=== PATIENT | male | born 1935 ===

== ENCOUNTER 2018-04-08 10:42 | Outpatient (CLI) | payer OTHER | END 2018-04-08 11:06 | disposition home or self-care (01) | LOC: RAD 10:42 | DX: M54.5 Low back pain (principal) ==

== ENCOUNTER 2018-12-06 18:25 | Outpatient (CLI) | payer OTHER | END 2018-12-06 18:30 | disposition home or self-care (01) | LOC: RAD 18:25 | DX: M81.0 Age-related osteoporosis without current pathological fracture (principal) ==

== ENCOUNTER 2020-02-23 22:13 | Emergency (ER) | payer OTHER ==
[~2020-02-23] VITALS: Ht 180.3 cm; Wt 73.5 kg
[2020-02-23] MEDS ORDERED: PRUNELAX (22:45)
[2020-02-23] MEDS ORDERED: FORTAMET500 MG (22:46)
[2020-02-23] MEDS ORDERED: HYZAAR 100-251 EACH (22:46)
[2020-02-23] MEDS ORDERED: ADULT ASPIRIN81 MG (22:47)
[2020-02-23] MEDS ORDERED: LEVOXYL112 MCG (22:47)
[2020-02-23] MEDS ORDERED: CARBIDOPA/LEVODOPA (22:49)
[2020-02-23] MEDS ORDERED: PREGABALIN50 MG (22:49)
[2020-02-23] MEDS ORDERED: TOLTERODINE 4 MG (22:51)
[2020-02-23] MEDS ORDERED: ATORVASTATIN CA20 MG (22:53)
[2020-02-23] MEDS ORDERED: DULOXETINE 60 MG (22:54)
[2020-02-23] MEDS ORDERED: MAXIMUM D3325 MCG (22:55)
[2020-02-23] MEDS ORDERED: [UNRECOGNIZED DRUG - OTHER] (22:57)
== END 2020-02-24 04:19 | disposition home or self-care (01) ==
LOC: ER 22:13
DX: R33.8 Other retention of urine (principal); K59.09 Other constipation; Z03.818 Encounter for observation for suspected exposure to other biological agents ruled out

== ENCOUNTER 2022-12-03 14:06 | Outpatient (CLI) | payer OTHER ==
[~2022-12-03 14:06] MED LIST: ADULT ASPIRIN81 MG; ATORVASTATIN CA20 MG; CARBIDOPA/LEVODOPA; DULOXETINE 60 MG; FORTAMET500 MG; HYZAAR 100-251 EACH; LEVOXYL112 MCG; MAXIMUM D3325 MCG; PREGABALIN50 MG; PRUNELAX; TOLTERODINE 4 MG; [UNRECOGNIZED DRUG - OTHER]
== END 2022-12-03 14:15 | disposition home or self-care (01) ==
LOC: RAD 14:06
PROVIDERS: ATTEND General Practice
DX: R07.1 Chest pain on breathing (principal); R10.11 Right upper quadrant pain

== ENCOUNTER 2024-09-06 21:36 | Inpatient (IN) | payer OTHER ==
[~2024-09-06] VITALS: Ht 172.7 cm; Wt 68.0 kg
--- NOTE | 2024-09-06 21:52 | NUR ---
SE RECIBE PACIENTE EN AMBULANCIA ALERTA Y ORIENTADO EN PERSONA EN COMPANIA DE FAMILIAR QUIEN REFIERE DESDE HACE LUIS SEMANA PRESENTA DIFICULTAD RESPIRATORIA Y [facility] GENERAL SIN MEJORA ALGUNA. SE OBSERVA CANALIZACION EN MANO IZQUIERDA CON ANGIO #22 PATENTE,AMRIK DE EDEMA O ERITEMA; RECIBIENDO IV FLUIDS. SE REALIZA EKG Y SE MONITOREAN VS.
[2024-09-06] MEDS ORDERED: RYTARY ER 61.21 EACH PO (21:56)
[2024-09-06] MEDS ORDERED: LYRICA50 MG PO (21:57)
[2024-09-06] MEDS ORDERED: XIGDUO XR 10 M1 EAC1 PO (21:57)
[2024-09-06] MEDS ORDERED: HUMALOG100 UNIT/2 SQ (21:57)
[2024-09-06] MEDS ORDERED: VAZALORE81 MG PO (21:57)
[2024-09-06] MEDS ORDERED: ATORVASTATIN CA20 MG PO (21:58)
[2024-09-06] MEDS ORDERED: SERTRALINE20 MG/1 ML (21:58)
[2024-09-06] MEDS ORDERED: COZAAR100 MG PO (21:58)
[2024-09-06] MEDS ORDERED: GLYCOPYRROLATE2 MG PO (21:58)
[2024-09-06] MEDS ORDERED: FOLIC ACID0.8 M1 PO (21:59)
[2024-09-06] MEDS ORDERED: [UNRECOGNIZED DRUG - OTHER] (21:59)
[2024-09-06] MEDS ORDERED: CARVEDILOL ER40 MG (21:59)
[2024-09-06] MEDS ORDERED: PEPCID AC20 MG (21:59)
[2024-09-06] MEDS ORDERED: PIPERACILLIN/TAZOBACTAM SODIUM 3.375 GM VIAL IV ONE ×2 (22:00→22:14)
[2024-09-06] MEDS ORDERED: LEVALBUTEROL HCL 0.63 MG/3 ML SOLUTION IH ONE (22:00)
[2024-09-06] MEDS ORDERED: FAMOtidine 10 MG/ML (4ML VIAL) IV ONE (22:00)
[2024-09-06] MEDS ORDERED: METHYLPREDNISOLONE SOD SUCC 40 MG VIAL IV ONE (22:00)
[2024-09-06] MEDS ORDERED: 0.9 % SODIUM CHLORIDE 1,000 ML IV ONE (22:00)
--- NOTE | 2024-09-06 22:00 | NUR ---
MS MCGINNIS ORIENTA PTE SOBRE Y FAMILIAR SOBRE TX MEDICO EL CUAL REFIERE ENTENDER.SE LE CONECTA A MONITOR CARDIACO Y OXIMETRIA,EN CAMA CON BARANDAS ELEVADAS.SE EXTRAEN MUESTRAS BAJO MEDIDAS ASEPTICAS,SE INSERTA ANGEL Y SE REALIZA EKG.PTE CANALIZADO EN MANO LT POR PARAMEDICOS #22.SE NOTIFICAN ABG A BALDO.
[2024-09-06] MEDS ORDERED: FAMOTIDINE/PF 20 MG/2 ML VIAL ONE (22:14)
[2024-09-06] MEDS ORDERED: METHYLPREDNISOLONE SOD SUCC 40 MG VIAL ONE (22:14)
[2024-09-06 22:52] LABS: ABG PH 7.418 (7.35-7.45); BASE EXCESS 3.3 mmol/l; BICARBONATE 28.4 mmol/l (23-25); Tco2 29.8 mmol/l; allen test NO SATISFACTORY; o2 21 %; puncture site RADIAL LEFT
[2024-09-06 22:53] LABS: ABG PO2 53.6 mmHg (80-100)
[2024-09-06 22:55] LABS: SaO2 88.3 %
--- NOTE | 2024-09-06 23:17 | NUR ---
SE RECIBE PACIENTE MASCULINO ALERTA Y ORIENTADO EN PERSONA EN CAMA CON BARANDAS ELEVADAS POR SEGURIDAD. CONECTADO A MONITOR CARDIACO PRESENTANDO PULSO EN 62/MIN Y SATURACION DE OXIGENO EN 94% ASISTIDO POR UN VENTURY MASK AL 50%. RECIBIENDO IV'S 0.9NSS BAJANDO A 40ML/HR POR VENOPUNCION EN BRAZO DERECHO AREA ARMIK DE EDEMA Y ERITEMA. SONDA URINARIA DRENANDO A GRAVEDAD 300ML DE ORINA COLOR AMARILLO INTENSO. SE DAIN A PACIENTE EN CAMA CON BARANDAS ELEVADAS POR SEGURIDAD Y SE MANTIENE EN OBSERVACION POR CAMBIOS.
[2024-09-06 23:21] LABS: HEMOGLOBIN 11.4 g/dL (13-16.00); MEAN CELL VOLUME 92.3 fL (80.0-100.00); MEAN CORPUSCULAR HGB CONC 33.6 g/dl (32.0-36.0); PLATELET COUNT 229 K/uL (150-450); RED BLOOD COUNT 3.68 M/uL (4.00-6.00)
[2024-09-06 23:41] LABS: ERYTHROCYTE SEDIMENTATION RATE 34 mm/hr
[2024-09-06 23:53] LABS: ALBUMIN 2.6 gm/dL (3.4-5.0); ALKALINE PHOSPHATASE 86 U/L (50-136); ANION GAP 10 (10.0-20.0); AST/SGOT 18 U/L (15-37); BILIRUBIN TOTAL 0.86 mg/dL (0.3-1.2); BLOOD UREA NITROGEN 32 mg/dL (7-18); BUN CREA RATIO 31 (7.0-25.0); CALCIUM 8.9 mg/dL (8.5-10.1); CARBON DIOXIDE 29 mEq/L (21-32); CHLORIDE 103 mmol/L (98-107); CREATININE SERUM 1.02 mg/dL (0.70-1.30); GFR 69.09; GLUCOSE FASTING 80 mg/dL (65-100); LDH 148 U/L (87-241); OSMOLALITY SERUM 282 MOSM/KG (275-295); POTASSIUM 4.23 mEq/L (3.5-5.1); SODIUM 138 mmol/L (136-145); TOTAL PROTEIN 5.6 gm/dL (6.4-8.2)
[2024-09-06 23:54] LABS: ALT/SGPT < 6 U/L (12-78)
[2024-09-06 23:57] LABS: INR 1.05; PARTIAL THROMBOPLASTIN TIME 34.4 SECONDS (22.0-34.0); PROTHROMBIN TIME 11.4 SECONDS (9.0-11.5)
[2024-09-07] VITALS (7 sets, daily range): BP systolic 96–126; BP diastolic 50–71; O2SAT 86–99
[2024-09-07 00:07] LABS: PH,URINE 6.5 (5.0-8.0); URINE APPEARANCE Turbid; URINE BILIRRUBIN Negative (NEGATIVE); URINE BLOOD Small; URINE COLOR Dark Yellow; URINE GLUCOSE Negative (NEGATIVE); URINE KETONE Trace (NEGATIVE); URINE LEUKOCYTE Large; URINE NITRATE Negative; URINE PROTEIN 30 (NEGATIVE)
[2024-09-07 00:11] LABS: URINE EPITHELIAL CELLS 65.5 uL (0.0-38.8); URINE RBC 85.8 uL (0.0-20.8); URINE WBC 483.2 uL (0.0-23.2)
[2024-09-07 00:40] LABS: URINE BACTERIA > 9821.5 uL (0.0-1933); URINE CAST > 21.83 uL (0.0-1.40)
[2024-09-07 00:41] LABS: URINE CRYSTALS FEW /HPF
[2024-09-07] MEDS ORDERED: LEVALBUTEROL HCL 1.25 MG/3 ML SOLUTION IH SCH (01:00)
[2024-09-07] MEDS ORDERED: LEVALBUTEROL HCL 1.25 MG/3 ML SOLUTION IH ONE (01:55)
--- NOTE | 2024-09-07 04:07 | NUR ---
RE-EVALUA PACIENTE. SE COORDINAN NINA X. SE MANTIENE EN OBSERVACION POR CAMBIOS EN CONDICION MEDICA.
[2024-09-07] MEDS ORDERED: PIPERACILLIN/TAZOBACTAM SODIUM 3.375 GM VIAL IV ONE ×2 (05:24→10:23)
[2024-09-07] MEDS ORDERED: PIPERACILLIN/TAZOBACTAM SODIUM 3.375 GM in 0.9 % SODIUM CHLORIDE 100 ML IV SCH ×2 (06:00→12:00)
--- NOTE | 2024-09-07 07:22 | NUR ---
SE RECIBE MASCULINO EN CAMAM CON BARANDAS ELEVADAS POR BLANCO SEGURIDAD Y SUAREZ DE ID. CONECTADO A MONITOR CARDIACO Y OXIMETRIA DE PULSO. VENOPUNCION X2 PATENTE AMRIK DE EDEMA Y ERITEMA EN H/L Y BAJANDO IV FLUIDS POR REGULADOR. V.M. @50% EN POSICION, TOLERANDO AL MOMENTO. NO SE OBSERVA DISTRESS RESPIRATORIO. ANGEL PATENTE BAJANDO A GRAVEDAD CON ORINA AMARILLO OSCURO Y CON SEDIMENTO. EXTREMIDADES SUPERIORES E INFERIORES AMRIK DE EDEMA. PTE PENDIENTE A CONSULTA CON MEDICINA INTERNA.
[2024-09-07 09:42] LABS: ABG PH 7.348 (7.35-7.45); ABG PO2 61.9 mmHg (80-100); BASE EXCESS -2.1 mmol/l; BICARBONATE 23.7 mmol/l (23-25); SaO2 89.8 %; allen test SATISFACTORY; o2 50 %; puncture site RADIAL RIGHT
[2024-09-07] MEDS ORDERED: ACETAMINOPHEN 325 MG TABLET PO PRN (09:45)
[2024-09-07] MEDS ORDERED: INSULIN LISPRO 1,000 UNIT/10 ML UNITS SUBCUTANEO PRN (09:45)
[2024-09-07] MEDS ORDERED: 0.9 % SODIUM CHLORIDE 1,000 ML IV SCH (09:45)
[2024-09-07] MEDS ORDERED: DEXTROSE 50 % IN WATER 0.5 G/ML DISP.SYRIN IV PRN (09:45)
[2024-09-07] MEDS ORDERED: FAMOTIDINE/PF 20 MG in 0.9 % SODIUM CHLORIDE 8 ML IV PUSH SCH (09:49)
[2024-09-07] MEDS ORDERED: CARBIDOPA/LEVODOPA 50/200 CR TABLET.SA PO SCH (10:03)
[2024-09-07] MEDS ORDERED: CLOPIDOGREL BISULFATE 75 MG TABLET PO SCH (10:04)
[2024-09-07] MEDS ORDERED: CARBIDOPA/LEVODOPA 25/100 UDTAB PO SCH (10:04)
[2024-09-07] MEDS ORDERED: ATORVASTATIN CALCIUM 20 MG TABLET PO SCH (10:06)
[2024-09-07] MEDS ORDERED: ASPIRIN 81 MG TABLET.EC PO NR (10:15)
[2024-09-07] MEDS ORDERED: LOSARTAN POTASSIUM 100 MG TABLET PO NR (10:15)
[2024-09-07] MEDS ORDERED: FAMOTIDINE/PF 20 MG/2 ML VIAL ONE (10:23)
[2024-09-07] MEDS ORDERED: METHYLPREDNISOLONE SOD SUCC 40 MG VIAL IV SCH ×2 (10:23→21:00)
[2024-09-07] MEDS ORDERED: ACETAMINOPHEN 500 MG GEL..CAP PO PRN (10:30)
[2024-09-07 12:15] LABS: CKMB 1.9 NG/ML (0.5-3.6); MAGNESIUM 1.9 mg/dL (1.8-2.4)
[2024-09-07] MEDS ORDERED: SODIUM CL 0.9% 100 ML IV.SOLN IV ONE (12:37)
[2024-09-07] MEDS ORDERED: LACTOBACILLUS ACIDOPHILUS 1 CAP CAP PO SCH (17:00)
[2024-09-07] MEDS ORDERED: AMINO ACIDS/PROTEIN HYDROLYS 30 ML BLIST.PACK PO SCH (17:24)
[2024-09-07] MEDS ORDERED: levoFLOXacin IN DEXTROSE 5 % 5 MG/ML PIGGYBAG IV SCH (18:00)
[2024-09-07] MEDS ORDERED: FUROsemide 40 MG/4 ML VIAL IV STA (22:01)
[2024-09-07 22:23] LABS: ABG PH 7.202 (7.35-7.45); ABG pCO2 56.4 mmHg (35-45); SaO2 84.1 %
[2024-09-07 22:24] LABS: BASE EXCESS -7.1 mmol/l; BICARBONATE 21.6 mmol/l (23-25); Tco2 23.4 mmol/l; allen test SATISFACTORY; o2 100 %; puncture site RADIAL RIGHT
[2024-09-08] VITALS (9 sets, daily range): BP systolic 99–113; BP diastolic 52–62; O2SAT 90–100
[2024-09-08] MEDS ORDERED: FUROsemide 40 MG/4 ML VIAL IV SCH (05:00)
[2024-09-08] MEDS ORDERED: ASPIRIN 81 MG TABLET.EC PO SCH (09:00)
[2024-09-08] MEDS ORDERED: LOSARTAN POTASSIUM 100 MG TABLET PO SCH (09:00)
[2024-09-08 10:25] LABS: ABG PH 7.261 (7.35-7.45); ABG pCO2 57.9 mmHg (35-45); BASE EXCESS -2.5 mmol/l; BICARBONATE 25.5 mmol/l (23-25); SaO2 99.5 %; Tco2 27.3 mmol/l
[2024-09-08 10:26] LABS: allen test SATISFACTORY; puncture site RADIAL LEFT
[2024-09-08 10:27] LABS: o2 100 %
[2024-09-08] MEDS ORDERED: FUROsemide 20 MG/2 ML VIAL IV SCH (17:00)
[2024-09-09] VITALS (9 sets, daily range): BP systolic 91–138; BP diastolic 49–55; O2SAT 93–100
[2024-09-09 01:00] LABS: HEMATOCRIT 34.4 % (39.0-48.0); HEMOGLOBIN 11.7 g/dL (13-16.00); MEAN CELL VOLUME 91.3 fL (80.0-100.00); MEAN CORPUSCULAR HEMOGLOBIN 31.1 pg (27.00-32.0); PLATELET COUNT 222 K/uL (150-450); RED BLOOD COUNT 3.77 M/uL (4.00-6.00); RED CELL DISTRIBUTION WIDTH 15.9 % (11.5-14.5)
[2024-09-09 12:45] LABS: ABG PH 7.338 (7.35-7.45); ABG pCO2 44.2 mmHg (35-45)
[2024-09-09 12:46] LABS: ABG PO2 86.4 mmHg (80-100); BASE EXCESS -2.7 mmol/l; BICARBONATE 23.2 mmol/l (23-25); SaO2 95.7 %; Tco2 24.6 mmol/l
[2024-09-09 12:50] LABS: allen test SATISFACTORY; puncture site RADIAL RIGHT
[2024-09-09 12:52] LABS: o2 50 %
[2024-09-09] MEDS ORDERED: VANCOMYCIN HCL 1,000 MG VIAL IV NR (13:00)
[2024-09-09] MEDS ORDERED: MEROPENEM 500 MG/VIAL VIAL IV SCH (17:00)
[2024-09-10] VITALS (9 sets, daily range): BP systolic 84–105; BP diastolic 40–54; O2SAT 0–98
== END 2024-09-10 18:00 | disposition expired | DRG 871 ==
LOC: ER 21:36 → MEDI 09-07 10:08
PROVIDERS: Emergency Medicine; General Practice; Internal Medicine; Internal Medicine Critical Care Medicine; ADMIT Student in an Organized Health Care Education/Training Program; ATTEND Student in an Organized Health Care Education/Training Program
PROC: BB24ZZZ Computerized Tomography (CT Scan) of Bilateral Lungs (ICD-10-PCS; principal; 2024-09-06)
PROC: B246ZZZ Ultrasonography of Right and Left Heart (ICD-10-PCS; 2024-09-07)
PROC: 3E0F7GC Introduction of Other Therapeutic Substance into Respiratory Tract, Via Natural or Artificial Opening (ICD-10-PCS; 2024-09-07)
PROC: 5A09457 Assistance with Respiratory Ventilation, 24-96 Consecutive Hours, Continuous Positive Airway Pressure (ICD-10-PCS; 2024-09-07)
PROC: 4A12X4Z Monitoring of Cardiac Electrical Activity, External Approach (ICD-10-PCS; 2024-09-07)
DX: A41.9 Sepsis, unspecified organism (principal); J18.9 Pneumonia, unspecified organism; N39.0 Urinary tract infection, site not specified; D72.828 Other elevated white blood cell count; R09.02 Hypoxemia; B96.1 Klebsiella pneumoniae [K. pneumoniae] as the cause of diseases classified elsewhere; E11.9 Type 2 diabetes mellitus without complications; Z79.4 Long term (current) use of insulin; G20.A1 Parkinson's disease without dyskinesia, without mention of fluctuations; Z74.01 Bed confinement status; I10 Essential (primary) hypertension